=== PATIENT | male | born 2000 | race Caucasian/White ===

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

== ENCOUNTER 2022-05-22 18:42 | Emergency (ER) | payer SELFPAY ==
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
[2022-05-22] MEDS ORDERED: IBUPROFEN 600 MG (MOTRIN) TAB PO ONE (21:00)
[2022-05-22] MEDS ORDERED: IBUP-1773 PO (21:04)
[2022-05-22 21:10] VITALS: BP 156/82
--- NOTE | 2022-05-23 08:38 | Diagnostic Imaging Report ---
CLINICAL HISTORY: Bilateral hand pain. COMPARISON: None. TECHNIQUE: 6 views of the bilateral hands. FINDINGS: There is no acute fracture or dislocation of the bilateral hands. Alignment is anatomic. The imaged joint spaces are preserved. No focal osseous lesions are seen. IMPRESSION: 1. No acute fracture or dislocation in the bilateral hands. Dictated by: Dictated on workstation # [id number]
--- NOTE | 2022-05-23 08:39 | Diagnostic Imaging Report ---
EXAMINATION: Left wrist 3 or more views REASON FOR EXAM: Left wrist pain. COMPARISON: 10/09/2011. FINDINGS: No acute fracture or dislocation is seen in the left wrist. Alignment is anatomic. No focal osseous lesions. IMPRESSION: 1. No acute fracture or dislocation in the left wrist. Dictated by: Dictated on workstation # [id number]
== END 2022-05-22 21:10 | disposition home or self-care (01) ==
LOC: EDUNIT# 18:42 → ER 18:44
DX: S60.222A Contusion of left hand, initial encounter (principal); S60.221A Contusion of right hand, initial encounter; Z28.310 Unvaccinated for COVID-19; Y04.8XXA Assault by other bodily force, initial encounter
CPT/HCPCS: 73110

== ENCOUNTER 2023-03-17 14:31 | Emergency (ER) | payer SELFPAY ==
[~2023-03-17] VITALS: Ht 187 cm; Wt 99.0 kg
[~2023-03-17 14:31] MED LIST changes: +IBUP-1773 PO
[2023-03-17] MEDS ORDERED: morphine INJ 4 MG/ML 1 ML (VIAL/SYRINGE) IVP ONE (15:30)
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
[2023-03-17 15:46] LABS: HEMATOCRIT 47 % (40-54); HEMOGLOBIN 16.1 g/dL (13.3-17.7); MEAN CORPUSCULAR HEMOGLOBIN 31 pg (25-34); MEAN CORPUSCULAR HGB CONC 34 g/dL (32-36); MEAN CORPUSCULAR VOLUME 91 fL (80-99); MEAN PLATELET VOLUME 10.4 fL (9.0-12.2); PLATELET COUNT 237 10^3/uL (130-400); WHITE BLOOD COUNT 6.9 10^3/uL (4.3-11.0)
[2023-03-17 16:06] LABS: ALBUMIN 4.5 GM/DL (3.2-4.5); POTASSIUM 3.9 MMOL/L (3.6-5.0)
[2023-03-17 16:07] LABS: CALCIUM 9.5 MG/DL (8.5-10.1)
[2023-03-17 16:10] LABS: BILIRUBIN,TOTAL 0.2 MG/DL (0.1-1.0)
[2023-03-17 16:12] LABS: CREATININE SERUM 1.09 MG/DL (0.60-1.30)
[2023-03-17] MEDS ORDERED: NS 100 ML (IVPB) BAG IV ONE (16:15)
[2023-03-17] MEDS ORDERED: IOHEXOL 350 MG/ML 100 ML (OMNIPAQUE 350) VIAL IV ONE (16:15)
--- NOTE | 2023-03-17 16:37 | Diagnostic Imaging Report ---
PROCEDURE: CT head and CT cervical spine without contrast. TECHNIQUE: Multiple contiguous axial images were obtained through the brain and cervical spine without the use of intravenous contrast. Sagittal and coronal reformations through the cervical spine were then performed. Auto Exposure Controls were utilized during the CT exam to meet ALARA standards for radiation dose reduction. INDICATION: Trauma COMPARISON: None available. FINDINGS: Head: No hyperdense hemorrhage or space-occupying mass. No hydrocephalus or midline shift. No evidence of territorial infarct. Basilar cisterns are patent. No focal scalp swelling. No skull fracture. The paranasal sinuses and mastoid air cells are clear. Cervical spine: No acute fracture or traumatic malalignment. No high-grade spinal canal narrowing. Airway is patent. No cervical lymphadenopathy. Visualized thyroid is normal. IMPRESSION: 1. No acute intracranial process or skull fracture. 2. No acute fracture or traumatic malalignment of the cervical spine. Dictated by: Dictated on workstation # [id number]
--- NOTE | 2023-03-17 16:45 | Diagnostic Imaging Report ---
PROCEDURE: CT lumbar spine without contrast. TECHNIQUE: Multiple contiguous axial images were obtained through the lumbar spine without the use of intravenous contrast. Sagittal and coronal reformations were then performed. Auto Exposure Controls were utilized during the CT exam to meet ALARA standards for radiation dose reduction. INDICATION: Trauma. COMPARISON: None available. 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 No acute fracture. No spinal canal stenosis. SI joints are normal in appearance. Paravertebral musculature is normal. IMPRESSION: 1. No acute osseous abnormality lumbar spine. 2. 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 Dictated by: Dictated on workstation # [id number]
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
--- NOTE | 2023-03-17 17:13 | Diagnostic Imaging Report ---
EXAMINATION: Left elbow radiographs. EXAM DATE: 03/17/2023 at 4:59 PM. COMPARISON: None available. HISTORY: Elbow pain. TECHNIQUE: 3 views. FINDINGS: There is no acute fracture, dislocation, or destructive osseous process. The joint spaces are normal. The soft tissues are normal. IMPRESSION: No acute osseous abnormality. Dictated by: Dictated on workstation # [id number]
--- NOTE | 2023-03-17 17:13 | Diagnostic Imaging Report ---
EXAMINATION: Chest, 1 view. HISTORY: Chest pain. COMPARISON: None available. FINDINGS: Heart size and pulmonary vasculature are normal. The lungs are clear without consolidation, pleural effusion, or pneumothorax. The osseous structures are intact. IMPRESSION: No acute radiographic abnormality in the chest. Dictated by: Dictated on workstation # [id number]
--- NOTE | 2023-03-17 17:14 | Diagnostic Imaging Report ---
EXAMINATION: Right foot radiograph. EXAM DATE: 03/17/2023 4:59 PM. COMPARISON: None available. HISTORY: Foot pain. TECHNIQUE: 3 views. FINDINGS: There is no acute fracture, dislocation, or destructive osseous process. The joint spaces are normal. The soft tissues are normal. IMPRESSION: No acute osseous abnormality. Dictated by: Dictated on workstation # [id number]
--- NOTE | 2023-03-17 17:15 | Diagnostic Imaging Report ---
EXAMINATION: Right knee radiographs. EXAM DATE: 03/17/2023 4:59 PM. COMPARISON: None available. HISTORY: Knee pain. TECHNIQUE: 3 views. FINDINGS: There is no acute fracture, dislocation, or destructive osseous process. The joint spaces are normal. The soft tissues are normal. IMPRESSION: No acute osseous abnormality. Dictated by: Dictated on workstation # [id number]
[2023-03-17 17:44] VITALS: BP 128/76
== END 2023-03-17 17:46 | disposition home or self-care (01) ==
LOC: EDUNIT# 14:31 → ER 14:35
DX: S50.312A Abrasion of left elbow, initial encounter (principal); S70.212A Abrasion, left hip, initial encounter; M43.06 Spondylolysis, lumbar region; R07.81 Pleurodynia; M25.561 Pain in right knee; M79.671 Pain in right foot; V03.90XA Pedestrian on foot injured in collision with car, pick-up truck or van, unspecified whether traffic or nontraffic accident, initial encounter; Y92.410 Unspecified street and highway as the place of occurrence of the external cause
CPT/HCPCS: 36415; 70450; 71045; 71260; 72125; 72131; 73080; 73562; 73630; 74177; 80053; 85027; 93041; 96374